=== PATIENT | female | born 1965 | race African-American/Black ===

== ENCOUNTER 2022-03-29 12:24 | Emergency (ER) | payer OTHER ==
[~2022-03-29] VITALS: Ht 167.6 cm; Wt 81.6 kg
[2022-03-29] MEDS ORDERED: IV NORMAL SALINE 1000 ML BAG IV ONE (12:45)
[2022-03-29] MEDS ORDERED: IOHEXOL 350 100 ML INFUS..BTL ONE (12:50)
[2022-03-29] MEDS ORDERED: SWABABLE VALVE TRANSFER SET EA MC ONE (12:50)
[2022-03-29] MEDS ORDERED: IV NORMAL SALINE 250 ML IV ONE (12:50)
--- NOTE | 2022-03-29 13:00 | NUR ---
Pt arrived [facility] by [id number] with c/o flu like symptoms that started 4 days ago and non radiating chest pain, 6. Pt denies headache and vomiting but experiences nausea especially when standing up. Productive cough, runny nose and dyspnea noted. Seen by Dr. Jacobson for MSE.
[2022-03-29 13:44] LABS: HEMATOCRIT 41.9 % (31.2-41.9); MEAN CORPUSCULAR HEMOGLOBIN 33.2 uug (24.7-32.8); MEAN CORPUSCULAR VOLUME 100.2 fL (75.5-95.3); PLATELET COUNT (AUTO) 252 K/uL (179-408)
[2022-03-29 13:54] LABS: CARBON DIOXIDE 28 mmol/L (21-32); CHLORIDE 101 mmol/L (98-107); CREATININE 0.9 mg/dL (0.6-1.3); GLUCOSE 84 mg/dL (74-106); POTASSIUM 3.7 mmol/L (3.5-5.1); UREA NITROGEN, BLOOD 11 mg/dL (7-18)
[2022-03-29 14:00] LABS: *BILIRUBIN,URIN 3+ (NEGATIVE); *CLARITY,URINE CLEAR (CLEAR); *COLOR,URINE YELLOW (YELLOW); *KETONES,URINE 4+ (NEGATIVE); LEUKOCYTE ESTERASE ,URINE NEGATIVE (NEGATIVE); NITRITE, URINE NEGATIVE (NEGATIVE); UGLUCOSE NEGATIVE (NEGATIVE)
[2022-03-29] MEDS ORDERED: ACETAMINOPHEN 325 MG TABLET PO ONE (14:00)
[2022-03-29 14:01] LABS: *BLOOD, URINE TRACE (NEGATIVE)
[2022-03-29 14:03] LABS: ALANINE AMINOTRANSFERASE 93 U/L (14-59); ALKALINE PHOSPHATASE 104 U/L (50-136); ASPARTATE AMINOTRANSFERASE 78 U/L (15-37); BILIRUBIN,DIRECT 0.2 mg/dL (0.0-0.2); BILIRUBIN,TOTAL 0.5 mg/dL (0.2-1.0); TOTAL PROTEIN, SERUM 7.2 g/dL (6.4-8.2)
[2022-03-29] MEDS ORDERED: ACETAMINOPHEN 325 MG TABLET ONE (14:32)
[2022-03-29 17:26] LABS: BACTERIA,URINE NONE SEEN /HPF (NONE SEEN); SQUAMOUS EPITHELIAL CELL,UR FEW /HPF (NONE SEEN); WBC,URINE 0-3 /HPF (0-3)
[2022-03-29 17:27] LABS: MUCUS,URINE MANY /LPF (0-FEW)
[2022-03-29] MEDS ORDERED: GUAI600T53 PO (17:30)
[2022-03-29] MEDS ORDERED: BENZ-13 PO (17:30)
--- NOTE | 2022-03-29 18:28 | NUR ---
Pt discharged to home in stable condition. Written and verbal after care instructions given. Pt verbalizes understanding of instructions. Stressed follow up or return to ER for worsening s/s.
[2022-03-29 18:31] VITALS: BP 121/77
== END 2022-03-29 18:32 | disposition home or self-care (01) ==
LOC: ER 12:26
DX: U07.1 COVID-19 (principal); R07.9 Chest pain, unspecified; M79.10 Myalgia, unspecified site; R00.0 Tachycardia, unspecified; Z86.711 Personal history of pulmonary embolism; E11.9 Type 2 diabetes mellitus without complications
CPT/HCPCS: 99285; 96360; 71275; 71045; 96361; 87426; 80076; 80048; 81001; 85025; 84145; 85379; 85730; 87400; 87040 ×3; 84484; 36415; 93005; 83605; Q9967; J7040; A4663